=== PATIENT | female | born 1935 | race Caucasian/White ===

== ENCOUNTER 2017-08-24 05:00 | Emergency (ER) | payer MEDICARE, OTHER ==
[~2017-08-24] VITALS: Ht 157.5 cm; Wt 52.2 kg
--- OUTSIDE RECORDS SUMMARY | ~2017-08-24 | XMS | Clinical Summary ---
Demographics + + + | Address | [address] | | | [place] [address] | + + + | Home Phone | | + + + | Preferred Language | Unknown | + + + | Marital Status | | + + + | Baptism Affiliation | [id number] | + + + | Race | Unknown | + + + | Ethnic Group | Unknown | + + + Author + + + | Author | [facility] | | | and [place] | + + + | Organization | [facility] | | | and [place] | + + + | Address | Unknown | + + + | Phone | Unavailable | + + + Support + + + + + | Name | Relationship | Address | Phone | + + + + + | Fransisco Banks | ECON | [address] | | | | | [place], [place] | | | | | [address] | | + + + + + | Fermin Banks | ECON | [address] | | | | | [place] | | | | | [address] | | + + + + + | Faheem Banks | ECON | [address] | | | | | [place] [address] | | + + + + + Care Team Providers + +------+ + | Care Unit Aide Name | Role | Phone | + +------+ + | John Cline | PP | | | MD | | | + +------+ + Allergies + + + + + + | Active Allergy | Reactions | Severity | Noted | Comments | | | | | Date | | + + + + + + | Ezetimibe-Simvastati | Rash | Low | 06/16/19 | | | n | | | 15 | | + + + + + + Current Medications + + +--------+---------+------+------+-------+ | Prescription | Sig. | Disp. | Refills | Star | End | Statu | | | | | | t | Date | s | | | | | | Date | | | + + +--------+---------+------+------+-------+ | fenofibrate | Take 160 mg by mouth | | | | | Activ | | (LOFIBRA, TRIGLIDE) | Daily. | | | | | e | | 160 mg tablet | | | | | | | + + +--------+---------+------+------+-------+ | cetirizine | Take 10 mg by mouth | | | | | Activ | | (ZYRTEC) 10 mg | Daily. | | | | | e | | tablet | | | | | | | + + +--------+---------+------+------+-------+ | ascorbic acid | Take 500 mg by mouth | | | | | Activ | | (VITAMIN C) 500 mg | Daily. | | | | | e | | tablet | | | | | | | + + +--------+---------+------+------+-------+ | | Take 1 tablet by | | | | | Activ | | Glucosamine-Chondroi | mouth Daily. | | | | | e | | t-Vit C-Mn | | | | | | | | (GLUCOSAMINE 1500 | | | | | | | | COMPLEX PO) | | | | | | | + + +--------+---------+------+------+-------+ | cholecalciferol | Take 1,000 Units by | | | | | Activ | | (VITAMIN D-3) 1,000 | mouth Daily. | | | | | e | | units capsule | | | | | | | + + +--------+---------+------+------+-------+ | Ferrous Fumarate | Take 18 mg by mouth | | | | | Activ | | (IRON) 18 MG TBCR | Daily. | | | | | e | + + +--------+---------+------+------+-------+ | loratadine | Take 10 mg by mouth | | | | | Activ | | (CLARITIN) 10 mg | Daily. | | | | | e | | tablet | | | | | | | + + +--------+---------+------+------+-------+ | | Take 1 tablet by | 20 | 1 | 04/2 | | Activ | | HYDROcodone-acetamin | mouth every 4 hours | tablet | | 9/20 | | e | | ophen (NORCO) 5-325 | as needed for Pain. | | | 15 | | | | mg per tablet | | | | | | | + + +--------+---------+------+------+-------+ | amLODIPine | Take 1 tablet by | 30 | 1 | 04/2 | | Activ | | (NORVASC) 5 mg | mouth Daily. | tablet | | 9/20 | | e | | tablet | | | | 15 | | | + + +--------+---------+------+------+-------+ | aspirin 81 mg | Take 1 tablet by | 30 | 1 | 04/2 | | Activ | | chewable tablet | mouth Daily. | tablet | | 9/20 | | e | | | | | | 15 | | | + + +--------+---------+------+------+-------+ | metoprolol | Take 0.5 tablets by | 30 | 1 | 04/2 | | Activ | | succinate | mouth Daily. | tablet | | 9/20 | | e | | (TOPROL-XL) 25 mg 24 | | | | 15 | | | | hr tablet | | | | | | | + + +--------+---------+------+------+-------+ Active Problems + + + | Problem | Noted Date | + + + | Prediabetes | 08/15/2014 | + + + | Coronary artery disease | 07/10/2014 | + + + + + | Overview: 07/10/2014: Cardiac catheterization demonstrating | | discrete 90% mid RCA disease with scattered luminal | | irregularities elsewhere. Well-preserved LV function. | + + + + + | Mitral regurgitation | 06/16/2014 | + + + | Paroxysmal atrial fibrillation (HCC) | 06/16/2014 | + + + Family History + + +------+ + | Medical History | Relation | Name | Comments | + + +------+ + | Emphysema | Father | | | + + +------+ + | Diabetes | Maternal | | | | | Grandmoth | | | | | er | | | + + +------+ + | Cancer | Sister | | Breast cancer | + + +------+ + + +------+ + + | Relation | Name | Status | Comments | + +------+ + + | Father | | | Empysema | | | | (Age | | | | | 64) | | + +------+ + + | Maternal Grandmother | | | | + +------+ + + | Mother | | | MVA | | | | (Age | | | | | 79) | | + +------+ + + | Sister | | | | + +------+ + + Social History + + + +--------+ + | Tobacco Use | Types | Packs/Day | Years | Date | | | | | Used | | + + + +--------+ + | Former Smoker | Cigarettes | 0.3 | 30 | Quit: 04/23/1985 | + + + +--------+ + + + +---------+ + | Alcohol Use | Drinks/We | oz/Week | Comments | | | ek | | | + + +---------+ + | Yes | 7 | 3.5 | | | | Standard | | | | | drinks or | | | | | | | | | | equivalen | | | | | t | | | + + +---------+ + + + + | Sex Assigned at | Date Recorded | | | | + + + | Not on file | | + + + Last Filed Vital Signs + + + + | Vital Sign | Reading | Time Taken | + + + + | Blood Pressure | 108/69 | 08/19/20141133 PDT | + + + + | Pulse | 78 | 08/19/20141133 PDT | + + + + | Temperature | 36.2 C (97.2 F) | 08/19/20141133 PDT | + + + + | Respiratory Rate | 18 | 08/19/20141133 PDT | + + + + | Oxygen Saturation | 95% | 08/19/20141133 PDT | + + + + | Inhaled Oxygen | - | - | | Concentration | | | + + + + | Weight | 57.1 kg (125 lb 14.1 | 08/17/2014249 PDT | | | oz) | | + + + + | Height | 157.5 cm (5' 2") | 08/14/2014458 PDT | + + + + | Body Mass Index | 23.02 | 08/17/2014249 PDT | + + + + Plan of Treatment + + + + + | Health Maintenance | Due Date | Last Done | Comments | + + + + + | Vaccine: | | | | | Dtap/Tdap/Td (1 - | 5 | | | | Tdap) | | | | + + + + + | Vaccine: | | | | | Pneumococcal 65+ | 1 | | | | Low/Medium Risk (1 | | | | | of 2 - PCV13) | | | | + + + + + | Vaccine: Influenza | | | | | (Season Ended) | 8 | | | + + + + + Implants + +------+-------+ +--------+--------+--------+ | Implanted | Type | Area | Manufacture | Device | Expira | Model | | | | | r | | tion | / | | | | | | Identi | Date | Serial | | | | | | fier | | / Lot | + +------+-------+ +--------+--------+--------+ | Valve Mtrl Epic Stnt 31mm - | | N/A: | [facility] VIDAL | | 10/08/ | [id number] | | [id number]: Qty: 1 on | | Heart | MEDICAL - | | 2016 | 1M-00 | | 08/14/2014 by Braden Markham | | | STJU | | | /[id number] | | G, MD | | | | | | 228 / | + +------+-------+ +--------+--------+--------+ Results Not on filefrom Last 3 Months Insurance + +--------+ +--------+ + + | Payer | Benefi | Subscriber | Type | Phone | Address | | | t Plan | ID | | | | | | / | | | | | | | Group | | | | | + +--------+ +--------+ + + | MEDICARE | MEDICA | xxxxxxxxxx | Medica | [phone] | | | RE | | re | [phone] | | | | PART A | | | | | | | AND B | | | | | + +--------+ +--------+ + + | MODA | MODA | xxxxxxxxx | Indemn | [phone] [address] [address] | | | HEALTH | | ity | [phone] | [place] [address] | | | MDCR | | | | | | | SUPPL | | | | | + +--------+ +--------+ + + + +--------+ +--------+ + + | Guarantor Name | Accoun | Relation to | Date | Phone | Billing Address | | | t Type | Patient | of | | | | | | | | | | + +--------+ +--------+ + + | GLADYS BANKS | Person | Self | [birth year] | Home: | [address] | | | al/Fam | | 1936 | [phone] [place] [address] | | | adilson | | | [phone] | | + +--------+ +--------+ + +
--- OUTSIDE RECORDS SUMMARY | ~2017-08-24 | XMS | Encounter Summary ---
Demographics + + + | Address | [address] | | | [place] [address] | + + + | Home Phone | | + + + | Preferred Language | Unknown | + + + | Marital Status | | + + + | Yazidism Affiliation | Unknown | + + + | Race | Unknown | + + + | Ethnic Group | Unknown | + + + Author + + + | Author | [facility] | + + + | Organization | [facility] | + + + | Address | Unknown | + + + | Phone | Unavailable | + + + Support + + +---------+ + | Name | Relationship | Address | Phone | + + +---------+ + | Fransisco Banks | ECON | Unknown | | + + +---------+ + Care Team Providers + +------+ + | Care Course Developer Name | Role | Phone | + +------+ + | John Cline MD | PCP | | + +------+ + Encounter Details +--------+ + + + + | Date | Type | Department | Care Team | Description | +--------+ + + + + | 06/26/ | Ancillary | [facility] | Julieth, Roxi, | Paroxysmal atrial | | 2018 | Procedure | ECHO | [address] | fibrillation (HCC); | | | | | Dr [address], | H/O mitral valve | | | | | [place] [address] | replacement | | | | | [phone] | | | | | | | | +--------+ + + + + Social History + + + +--------+ + | Tobacco Use | Types | Packs/Day | Years | Date | | | | | Used | | + + + +--------+ + | Former Smoker | Cigarettes | 0.4 | 30 | Quit: 04/23/1985 | + + + +--------+ + + +---+---+---+ | Smokeless Tobacco: | | | | | Never Used | | | | + +---+---+---+ + + +---------+ + | Alcohol Use | Drinks/We | oz/Week | Comments | | | ek | | | + + +---------+ + | Yes | 7 | 4.2 | red wine` | | | Standard | | | | | drinks or | | | | | | | | | | equivalen | | | | | t | | | + + +---------+ + + + + | Sex Assigned at | Date Recorded | | | | + + + | Not on file | | + + + as of this encounter Plan of Treatment +--------+ + + + + | Date | Type | Specialty | Care Team | Description | +--------+ + + + + | 09/25/ | Documentati | Cardiology | | | | 2018 | on Only | | | | +--------+ + + + + | 11/13/ | Documentati | Cardiology | | | | 2018 | on Only | | | | +--------+ + + + + | 12/19/ | Office | Cardiology | Roxi Fuentes, | | | 2017 | Visit | | MD Meche Ball | | | | | | Dr [address], | | | | | | [place] [address] | | | | | | [phone] | | | | | | | | +--------+ + + + + | 02/19/ | Documentati | Cardiology | | | | 2017 | on Only | | | | +--------+ + + + + | 05/28/ | Documentati | Cardiology | | | | 2018 | on Only | | | | +--------+ + + + + as of this encounter Procedures + +--------+ + + + | Procedure Name | Priori | Date/Time | Associated Diagnosis | Comments | | | ty | | | | + +--------+ + + + | ECHO OUTSIDE | Routin | 06/26/2017 | Paroxysmal atrial | Results for this | | INTERPRETATION | e | 12:29 PM | fibrillation (HCC) | procedure are in the | | STANDARD | | PST | H/O mitral valve | results section. | | | | | replacement | | + +--------+ + + + in this encounter Results ECHO outside interpretation standard (06/26/2017 12:29 PM) + + + | Specimen | Performing Laboratory | + + + | | [facility] [place] [id number] | + + + + + | Impressions | + + | 1. The left ventricle is normal in size, mild concentric hypertrophy and normal | | systolic function EF 55-60%. 2. The right ventricle is normal in size and function. 3. | | The aortic valve is moderately calcified with moderate stenosis mean gradient of 12 | | mmHg. 4. 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 5. Moderate tricuspid regurgitation and mild pulmonary hypertension RVSP | | 43 mmHg. 6. There is no pericardial effusion. | + + + + | Narrative | + + | Patient Name: Gladys Banks Date of : 1935 | | Performing Physician: Roxi Fuentes MD | | INDICATIONS | | A-Fib CONCLUSIONS 1. The left ventricle is normal in | | size, mild concentric hypertrophy and normal systolic function EF 55-60%. 2. The right | | ventricle is normal in size and function. 3. The aortic valve is moderately calcified | | with moderate stenosis mean gradient of 12 mmHg. 4. Bioprosthetic MVR [address] Lei | | epic porcine valve with no stenosis or regurgitation. 5. Moderate tricuspid | | regurgitation and mild pulmonary hypertension RVSP 43 mmHg. 6. There is no pericardial | | effusion. FINDINGS -------- ECG rhythm: Sinus rhythm. Study: A 2-dimensional | | transthoracic echocardiogram with m-mode, spectral and color flow Doppler was perfomed. | | Study: This was a technically adequate study. Left Ventricle: Overall left | | ventricular systolic function is normal with, an EF between 55 - 60 %. Left Ventricle: | | The left ventricle cavity size is normal. Left Ventricle: There is mild concentric | | left ventricular hypertrophy. Left Ventricle: No regional wall motion abnormalities. | | Right Ventricle: The right ventricle is normal in size and function. Right Ventricle: | | Pacer/ICD wire seen. Left Atrium: The left atrium is markedly enlarged. Right Atrium: | | The right atrium is normal in size. Right Atrium: Pacemaker wire seen in the right | | atrial cavity. Aortic Valve: The aortic valve appears to be trileaflet. Aortic Valve: | | The aortic valve is moderately calcified. Aortic Valve: There is mild aortic | | regurgitation. Aortic Valve: Moderate aortic stenosis with peak/mean pressure gradient | | of 21.39mmHg / 11.77mmHg, the aortic valve area by continuity equation is 1.4cm . | | Mitral Valve: No mitral regurgitation. Mitral Valve: History of MVR [address] Lei | | epic porcine valve. Tricuspid Valve: The tricuspid valve appears structurally normal. | | Tricuspid Valve: Moderate tricuspid regurgitation present. Tricuspid Valve: There is | | mild pulmonary hypertension. Tricuspid Valve: The right ventricular systolic pressure | | (pulmonary artery systolic pressure), as measured by Doppler, is 43.29mmHg. Pulmonic | | Valve: The pulmonic valve is normal. Pulmonic Valve: Mild to moderate pulmonic | | regurgitation. Pericardium: There is no pericardial effusion. Pericardium: No pleural | | effusion seen. IVC/Hepatic Veins: The IVC is small (<1.5cm) and collapses with sniff, | | consistent with central venous pressures of 0-5mmHg. 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 MEASUREMENTS Ao asc: 3.75 cm | | Ao Diam: 3.51 cm Ao sinus: 3.[address] junct: 3.41 cm IVC: 1.15 cm | | LA Diam: 3.73 cm LA Major: 4.72 cm EDV(Teich): 79.17 ml IVSd: 1.09 | | cm LVIDd: 4.21 cm LVPWd: 1.18 cm LVOT Area: 3.30 cm2 LVOT Diam: 2.05 | | cm %FS: 27.54 % EF(Teich): 53.86 % ESV(Teich): 36.52 ml LVIDs: 3.05 | | cm SV(Teich): 42.64 ml RA Major: 4.49 cm RV Major: 6.56 cm RVIDd: | | 2.91 cm LVEF MOD A2C: 56.86 % SV MOD A2C: 32.26 ml LVEF MOD A4C: 55.47 % | | SV MOD A4C: 36.40 ml EF Biplane: 56.51 % LVEDV MOD BP: 63.07 ml LVESV | | MOD BP: 27.43 ml LVEDV MOD A2C: 56.74 ml LVLd A2C: 6.33 cm LVEDV MOD | | A4C: 65.61 ml LVLd A4C: 6.84 cm LVESV MOD A2C: 24.47 ml LVLs A2C: | | 5.67 cm LVESV MOD A4C: 29.21 ml LVLs A4C: 6.01 cm LAESV(A-L): 117.42 ml | | LAESV Index (A-L): 76.74 ml/m2 LAAs A2C: 26.51 cm2 LAESV A-L A2C: 107.42 | | ml LALs A2C: 5.55 cm LAAs A4C: 28.86 cm2 LAESV A-L A4C: 127.84 ml LALs | | A4C: 5.53 cm RAAs: 14.85 cm2 RAESV A-L: 40.08 ml RAESV MOD: 36.09 ml | | RALs: 4.67 cm TAPSE: 2.26 cm AR Dec Troup: 2.13 m/s2 AR Dec Time: | | 2121.31 ms AR maxP.28 mmHg AR PHT: 615.18 ms AR Vmax: 4.53 m/s AV | | maxP.39 mmHg AV meanP.76 mmHg AV Vmax: 2.31 m/s AV Vmean: | | 1.60 m/s AV VTI: 54.59 cm ZIGGY Vmax: 1.47 cm2 ZIGGY (VTI): 1.35 cm2 AVAI | | Vmax: 0.00 cm2/m2 AVAI (VTI): 0.00 cm2/m2 LVOT maxP.23 mmHg LVOT | | meanP.18 mmHg LVSI Dopp: 48.23 ml/m2 LVSV Dopp: 73.80 ml LVOT | | Vmax: 1.02 m/s LVOT Vmean: 0.68 m/s LVOT VTI: 22.34 cm MV A Enrique: 0.50 | | m/s MV DecT: 330.33 ms MV E Enrique: 1.38 m/s MV E/A Ratio: 2.72 MV | | PHT: 95.79 ms MVA By PHT: 2.29 cm2 MV maxP.38 mmHg MV meanPG: | | 2.48 mmHg MV Vmax: 1.44 m/s MV Vmean: 0.69 m/s MV VTI: 39.44 cm MVA | | (VTI): 1.87 cm2 Septal e': 0.04 m/s Septal E/e': 30.60 Lateral e': | | 0.04 m/s Lateral E/e': 31.32 RAP: 5 mmHg RVSP: 43.29 mmHg TR maxPG: | | 38.29 mmHg TR Vmax: 3.09 m/s Senior Core Java Developer: Authenticated by: Julieth | | Roxi AMIN Report Date/Time: 07-03-2017 18:5:35 | + + + + | Procedure Note | + + | Jose L Mijares In - 07/03/2017 6:11 PM PDT Patient Name: Shailesh Banks of | | : 6Accession: [id number] Physician: Roxi Fuentes MD | | INDICATIONS A-F | | ibCONCLUSIONS 1. The left ventricle is normal in size, mild concentric | | hypertrophy and normal systolic function EF 55-60%.2. The right ventricle is normal in | | size and function.3. The aortic valve is moderately calcified with moderate stenosis | | mean gradient of 12 mmHg.4. 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 Moderate tricuspid regurgitation and mild pulmonary | | hypertension RVSP 43 mmHg.6. There is no pericardial effusion.FINDINGS--------ECG | | rhythm: Sinus rhythm.Study: A 2-dimensional transthoracic echocardiogram with m-mode, | | spectral and color flow Doppler was perfomed. Study: This was a technically adequate | | study.Left Ventricle: Overall left ventricular systolic function is normal with, an EF | | between 55 - 60 %. Left Ventricle: The left ventricle cavity size is normal. Left | | Ventricle: There is mild concentric left ventricular hypertrophy. Left Ventricle: No | | regional wall motion abnormalities.Right Ventricle: The right ventricle is normal in | | size and function. Right Ventricle: Pacer/ICD wire seen.Left Atrium: The left atrium is | | markedly enlarged.Right Atrium: The right atrium is normal in size. Right Atrium: | | Pacemaker wire seen in the right atrial cavity.Aortic Valve: The aortic valve appears to | | be trileaflet. Aortic Valve: The aortic valve is moderately calcified. Aortic Valve: | | There is mild aortic regurgitation. Aortic Valve: Moderate aortic stenosis with | | peak/mean pressure gradient of 21.39mmHg / 11.77mmHg, the aortic valve area by | | continuity equation is 1.4cm .Mitral Valve: No mitral regurgitation. Mitral Valve: | | History of MVR [address] Lei epic porcine valve.Tricuspid Valve: The tricuspid valve | | appears structurally normal. Tricuspid Valve: Moderate tricuspid regurgitation present. | | Tricuspid Valve: There is mild pulmonary hypertension. Tricuspid Valve: The right | | ventricular systolic pressure (pulmonary artery systolic pressure), as measured by | | Doppler, is 43.29mmHg.Pulmonic Valve: The pulmonic valve is normal. Pulmonic Valve: Mild | | to moderate pulmonic regurgitation.Pericardium: There is no pericardial effusion. 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.MEASUREMENTS Ao | | asc: 3.75 cmAo Diam: 3.51 cmAo sinus: 3.[address] junct: 3.41 cmIVC: 1.15 | | cmLA Diam: 3.73 cmLA Major: 4.72 cmEDV(Teich): 79.17 mlIVSd: 1.09 cmLVIDd: | | 4.21 cmLVPWd: 1.18 cmLVOT Area: 3.30 [id number] Diam: 2.05 cm%FS: 27.54 %EF(Teich): | | 53.86 %ESV(Teich): 36.52 mlLVIDs: 3.05 cmSV(Teich): 42.64 mlRA Major: 4.49 | | cmRV Major: 6.56 cmRVIDd: 2.91 cmLVEF MOD A2C: 56.86 %SV MOD A2C: 32.26 mlLVEF | | MOD A4C: 55.47 %SV MOD A4C: 36.40 mlEF Biplane: 56.51 %LVEDV MOD BP: 63.07 | | mlLVESV MOD BP: 27.43 mlLVEDV MOD A2C: 56.74 mlLVLd A2C: 6.33 cmLVEDV MOD A4C: | | 65.61 mlLVLd A4C: 6.84 cmLVESV MOD A2C: 24.47 mlLVLs A2C: 5.67 cmLVESV MOD A4C: | | 29.21 mlLVLs A4C: 6.01 cmLAESV(A-L): 117.42 mlLAESV Index (A-L): 76.74 ml/m2LAAs | | A2C: 26.51 [id number] A-L A2C: 107.42 mlLALs A2C: 5.55 cmLAAs A4C: 28.86 [id number] | | A-L A4C: 127.84 mlLALs A4C: 5.53 cmRAAs: 14.85 [id number] A-L: 40.08 mlRAESV MOD: | | 36.09 mlRALs: 4.67 cmTAPSE: 2.26 cmAR Dec Troup: 2.13 m/s2AR Dec Time: 2120. | | msAR maxP.28 mmHgAR PHT: 615.18 msAR Vmax: 4.53 m/Sherry maxP.39 mmHgAV | | meanP.76 mmHgAV Vmax: 2.31 m/Sherry Vmean: 1.60 m/Sherry VTI: 54.59 cmAVA Vmax: | | 1.47 cm2AVA (VTI): 1.35 [id number] Vmax: 0.00 cm2/m2AVAI (VTI): 0.00 cm2/m2LVOT | | maxP.23 mmHgLVOT meanP.18 mmHgLVSI Dopp: 48.23 ml/m2LVSV Dopp: 73.80 | | mlLVOT Vmax: 1.02 m/sLVOT Vmean: 0.68 m/sLVOT VTI: 22.34 cmMV A Enrique: 0.50 m/sMV | | DecT: 330.33 msMV E Enrique: 1.38 m/sMV E/A Ratio: 2.72 MV PHT: 95.79 msMVA By PHT: | | 2.29 cm2MV maxP.38 mmHgMV meanP.48 mmHgMV Vmax: 1.44 m/sMV Vmean: 0.69 | | m/sMV VTI: 39.44 cmMVA (VTI): 1.87 [id number] e': 0.04 m/sSeptal E/e': 30.60 | | Lateral e': 0.04 m/sLateral E/e': 31.32 RAP: 5 mmHgRVSP: 43.29 mmHgTR maxPG: | | 38.29 mmHgTR Vmax: 3.09 m/sSonographer: Authenticated by: [facility]entes [facility] | | Date/Time: 07-03-2017 18:5:35IMPRESSION:1. The left ventricle is normal in size, mild | | concentric hypertrophy and normal systolic function EF 55-60%.2. The right ventricle is | | normal in size and function.3. The aortic valve is moderately calcified with moderate | | stenosis mean gradient of 12 mmHg.4. Bioprosthetic MVR [address] Lei epic porcine valve | | with no stenosis or regurgitation.5. Moderate tricuspid regurgitation and mild pulmonary | | hypertension RVSP 43 mmHg.6. There is no pericardial effusion. | |LA Diam: 3.73 cm | |LA Major: 4.72 cm | |EDV(Teich): 79.17 ml | |IVSd: 1.09 cm | |LVIDd: 4.21 cm | |LVPWd: 1.18 cm | |LVOT Area: 3.30 cm2 | |LVOT Diam: 2.05 cm | |%FS: 27.54 % | |EF(Teich): 53.86 % | |ESV(Teich): 36.52 ml | |LVIDs: 3.05 cm | |SV(Teich): 42.64 ml | |RA Major: 4.49 cm | |RV Major: 6.56 cm | |RVIDd: 2.91 cm | |LVEF MOD A2C: 56.86 % | |SV MOD A2C: 32.26 ml | |LVEF MOD A4C: 55.47 % | |SV MOD A4C: 36.40 ml | |EF Biplane: 56.51 % | |LVEDV MOD BP: 63.07 ml | |LVESV MOD BP: 27.43 ml | |LVEDV MOD A2C: 56.74 ml | |LVLd A2C: 6.33 cm | |LVEDV MOD A4C: 65.61 ml | |LVLd A4C: 6.84 cm | |LVESV MOD A2C: 24.47 ml | |LVLs A2C: 5.67 cm | |LVESV MOD A4C: 29.21 ml | |LVLs A4C: 6.01 cm | |LAESV(A-L): 117.42 ml | |LAESV Index (A-L): 76.74 ml/m2 | |LAAs A2C: 26.51 cm2 | |LAESV A-L A2C: 107.42 ml | |LALs A2C: 5.55 cm | |LAAs A4C: 28.86 cm2 | |LAESV A-L A4C: 127.84 ml | |LALs A4C: 5.53 cm | |RAAs: 14.85 cm2 | |RAESV A-L: 40.08 ml | |RAESV MOD: 36.09 ml | |RALs: 4.67 cm | |TAPSE: 2.26 cm | |AR Dec Troup: 2.13 m/s2 | |AR Dec Time: 2121.31 ms | |AR maxP.28 mmHg | |AR PHT: 615.18 ms | |AR Vmax: 4.53 m/s | |AV maxP.39 mmHg | |AV meanP.76 mmHg | |AV Vmax: 2.31 m/s | |AV Vmean: 1.60 m/s | |AV VTI: 54.59 cm | |ZIGGY Vmax: 1.47 cm2 | |ZIGGY (VTI): 1.35 cm2 | |AVAI Vmax: 0.00 cm2/m2 | |AVAI (VTI): 0.00 cm2/m2 | |LVOT maxP.23 mmHg | |LVOT meanP.18 mmHg | |LVSI Dopp: 48.23 ml/m2 | |LVSV Dopp: 73.80 ml | |LVOT Vmax: 1.02 m/s | |LVOT Vmean: 0.68 m/s | |LVOT VTI: 22.34 cm | |MV A Enrique: 0.50 m/s | |MV DecT: 330.33 ms | |MV E Enrique: 1.38 m/s | |MV E/A Ratio: 2.72 | |MV PHT: 95.79 ms | |MVA By PHT: 2.29 cm2 | |MV maxP.38 mmHg | |MV meanP.48 mmHg | |MV Vmax: 1.44 m/s | |MV Vmean: 0.69 m/s | |MV VTI: 39.44 cm | |MVA (VTI): 1.87 cm2 | |Septal e': 0.04 m/s | |Septal E/e': 30.60 | |Lateral e': 0.04 m/s | |Lateral E/e': 31.32 | |RAP: 5 mmHg | |RVSP: 43.29 mmHg | |TR maxP.29 mmHg | |TR Vmax: 3.09 m/s | | | |Senior Core [employer] Developer: | |Authenticated by: Roxi Fuentes MD | |Report Date/Time: 07-03-2017 18:5:35 | | | |IMPRESSION: | |1. The left ventricle is normal in size, mild concentric hypertrophy and normal systolic fu nction EF 55-60%. | |2. The right ventricle is normal in size and function. | |3. The aortic valve is moderately calcified with moderate stenosis mean gradient of 12 mmHg . | |4. Bioprosthetic MVR [address] [place] epic porcine valve with no stenosis or regurgitation. | |5. Moderate tricuspid regurgitation and mild pulmonary hypertension RVSP 43 mmHg. | |6. There is no pericardial effusion. | + + in this encounter Visit Diagnoses + + | Diagnosis | + + | Paroxysmal atrial fibrillation (HCC) | + + | Atrial fibrillation | + + | H/O mitral valve replacement | + + | Heart valve replaced by other means | + +"
--- OUTSIDE RECORDS SUMMARY | ~2017-08-24 | XMS | Clinical Summary ---
Demographics + + + | Address | [address] [facility] [address] | | | [place] [address] | + + + | Home Phone | | + + + | Preferred Language | Unknown | + + + | Marital Status | | + + + | Christianity Affiliation | Unknown | + + + | Race | Unknown | + + + | Ethnic Group | Unknown | + + + Author + + + | Author | [facility] | + + + | Organization | [facility] | + + + | Address | Unknown | + + + | Phone | Unavailable | + + + Support + + +---------+ + | Name | Relationship | Address | Phone | + + +---------+ + | Fransisco Banks | ECON | Unknown | | + + +---------+ + Care Team Providers + +------+ + | Care Service Center Supervisor Name | Role | Phone | + +------+ + | John Cline MD | PP | | + +------+ + Allergies + + + + + + | Active Allergy | Reactions | Severity | Noted | Comments | | | | | Date | | + + + + + + | Ezetimibe | Hives, Rash | High | 07/05/19 | | | | | | 16 | | + + + + + + | Simvastatin | Other (See Comments) | Medium | 07/05/19 | Muscular aches and | | | | | 16 | pains | + + + + + + Current Medications + + +--------+---------+------+------+-------+ | Prescription | Sig. | Disp. | Refills | Star | End | Statu | | | | | | t | Date | s | | | | | | Date | | | + + +--------+---------+------+------+-------+ | ferrous gluconate | Take 325 mg by mouth | | | | | Activ | | (FERGON) 240 (27 FE) | daily. | | | | | e | | MG tablet | | | | | | | + + +--------+---------+------+------+-------+ | metoprolol | Take 25 mg by mouth | | | | | Activ | | (TOPROL-XL) 25 MG 24 | 2 (two) times daily. | | | | | e | | hr tablet | | | | | | | + + +--------+---------+------+------+-------+ | cetirizine | Take 10 mg by mouth | | | | | Activ | | (ZYRTEC) 10 MG | daily. | | | | | e | | tablet | | | | | | | + + +--------+---------+------+------+-------+ | amiodarone | Take 200 mg by mouth | | | | | Activ | | (PACERONE) 200 MG | daily. Sunday thr | | | | | e | | tablet | Sunday only | | | | | | + + +--------+---------+------+------+-------+ | fenofibrate | Take 160 mg by mouth | | | | | Activ | | (TRIGLIDE) 160 MG | daily. | | | | | e | | tablet | | | | | | | + + +--------+---------+------+------+-------+ | ascorbic acid | Take 500 mg by mouth | | | | | Activ | | (VITAMIN C) 500 MG | daily. | | | | | e | | tablet | | | | | | | + + +--------+---------+------+------+-------+ | | Take 1 capsule by | | | | | Activ | | glucosamine-chondroi | mouth daily. W/ | | | | | e | | tin 500-400 MG CAPS | Vitamin D | | | | | | + + +--------+---------+------+------+-------+ | aspirin 81 MG EC | Take 1 tablet by | | | 03/1 | | Activ | | tablet | mouth daily with | | | 4/20 | | e | | | breakfast. | | | 16 | | | + + +--------+---------+------+------+-------+ | apixaban (ELIQUIS) | Take 1 tablet by | 180 | 1 | 05/2 | | Activ | | 2.5 MG tablet | mouth 2 (two) times | tablet | | 4/20 | | e | | | daily. | | | 16 | | | + + +--------+---------+------+------+-------+ | Cholecalciferol | Take 2,000 Units by | | | | | Activ | | 2000 UNITS CAPS | mouth daily. | | | | | e | + + +--------+---------+------+------+-------+ | cyanocobalamin | Take 1,000 mcg by | | | | | Activ | | (VITAMIN B-12) 1000 | mouth daily. | | | | | e | | MCG tablet | | | | | | | + + +--------+---------+------+------+-------+ | atorvastatin | Take 40 mg by mouth | | | | | Activ | | (LIPITOR) 40 MG | nightly. | | | | | e | | tablet | | | | | | | + + +--------+---------+------+------+-------+ | donepezil | Take 5 mg by mouth | | | | | Activ | | (ARICEPT) 5 MG | daily. 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 | | 80yo WF, with fairly complex cardiac history, severe mitral | | regurgitation, paroxysmal atrial fibrillation, and coronary | | disease. Undergoing bypass surgery with mitral valve | | replacement, Maze procedure with Atricure clip. She has done | | well since her last visit, a few months ago. Her son is with her | | today. She does not recall any recent palpitations or | | lightheadedness. Denies any new visual disturbances, dysarthria, | | dysphasia, lateralizing signs or symptoms. No significant | | bleeding or bruising. She is unaware of any significant chest | | discomfort or shortness of breath, only modestly active. With | | regards to her amiodarone, routine surveillance includes | | monitoring thyroid function, liver enzymes, chest x-ray, and | | PFT's with diffusion capacity may be reasonable if she can | | cooperate with PFT maneuvers. Hx CABG ([facility], [place]): 08/14/2014, | | CABG*1/MVR (SVG to RCA/#31 SJ Epic porcine valve, with Left | | Atrial cryo-MAZE and Atricure clip (40mm).Hx PCI/stent: noHx | | Pacemaker/ICD: 09/29/2014, Medtronic ADDR01, SN: [id number].Last | | Cath, 07/10/2014 ([facility], [place]): left main OK, 20-25% scattered | | LAD, 30-35% scattered LCx, 90% prox-RCA. Moderate-severe MR, | | failed leaflet. LVEF 65%.Last Echo, 09/23/2014 ([facility]): | | bioprosthetic MVR, stable, mean gradient 2mmHg, trace MR, Aortic | | valve sclerotic, 2m/sec, mild AI, trace TR, moderate PI, mild | | LVH, LVEF 64%, severe LAE, mild RHEA. Last Stress Test: naECG, | | 07/02/2015: A-paced, intrinsic QRS PRWP. | + + + + + | Paroxysmal atrial fibrillation (HCC) | 07/05/2015 | + + + + + | Last Assessment & Plan: Torin lira, Hx cryo-MAZE and Atricure | | clip (during CABG/MVR), 08/14/2014. On amiodarone and Eliquis. | | Remains in sinus rhythm. Unaware of any new visual disturbances, | | dysarthria, dysphasia, lateralizing signs or symptoms. No | | significant bleeding or bruising. She does admit she has having | | some memory difficulties. | + + + + + | Cardiac pacemaker in situ | 07/05/2015 | + + + + + | Last Assessment & Plan: Tachy-bruno Syndrome, P A fib, | | medical therapy/pacemaker therapy. Followed by | | [facility].Pacemaker implanted 09/29/2014 ([facility]), Medtronic | | ADDR01, SN: [id number].Last interrogation, 03/01/2015: battery est | | 12 years, device stable, one episode of P A fib, 30min, V-rate | | 160bpm. | + + + + + | Hyperlipidemia | 07/05/2015 | + + + + + | Last Assessment & Plan: Hyperlipidemia, continue current med | | at current dose (fenofibrate), managed by PCP. | + + Encounters +--------+ + + + + | Date | Type | Specialty | Care Team | Description | +--------+ + + + + | 06/26/ | Ancillary | | Roxi Fuentes, | Paroxysmal atrial | | 2017 | Procedure | | MD | fibrillation ([facility]); | | | | | | H/O mitral valve | | | | | | replacement | +--------+ + + + + | 06/20/ | Office | | Roxi Fuentes, | Coronary artery | | 2017 | Visit | | MD | disease involving | | | | | | coronary bypass | | | | | | graft of tejon | | | | | | heart with angina | | | | | | pectoris ([facility]) | | | | | | (Primary Dx); | | | | | | Paroxysmal atrial | | | | | | fibrillation ([facility]); | | | | | | Mixed | | | | | | hyperlipidemia; H/O | | | | | | mitral valve | | | | | | replacement | +--------+ + + + + from Last 3 Months Family History + + +------+ + | Medical History | Relation | Name | Comments | + + +------+ + | Heart disease | Father | | | + + +------+ + | Diabetes type II | Mother | | | + + +------+ + | Heart disease | Mother | | | + + +------+ + + +------+ + + | Relation | Name | Status | Comments | + +------+ + + | Father | | | COPD, CHF (heavy smoker) | + +------+ + + | Mother | | | DMII,heart disease | + +------+ + + Social History [...] + + + | Blood Pressure | 112/64 | 06/20/2017 10:47 AM PST | + + + + | Pulse | 66 | 06/20/2017 10:47 AM PST | + + + + | Temperature | - | - | + + + + | Respiratory Rate | 17 | 12/06/2015 12:37 PM PDT | + + + + | Oxygen Saturation | 95% | 06/20/2017 10:47 AM PST | + + + + | Inhaled Oxygen | - | - | | Concentration | | | + + + + | Weight | 54.8 kg (120 lb 14.4 | 06/20/2017 10:47 AM PST | | | oz) | | + + + + | Height | 160 cm (5' 3") | 06/20/2017 10:47 AM PST | + + + + | Body Mass Index | 21.42 | 06/20/2017 10:47 AM PST | + + + + Plan of Treatment +--------+ + + + + | Date | Type | Specialty | Care Team | Description | +--------+ + + + + | 09/25/ | Documentati | | | | | 2017 | on Only | | | | +--------+ + + + + | 11/13/ | Documentati | | | | | 2017 | on Only | | | | +--------+ + + + + | 12/19/ | Office | | Roxi Fuentes, | | | 2017 | Visit | | MD Meche Ball | | | | | | Dr [place], | | | | | | [place] [address] | | | | | | [phone] | | | | | | | | +--------+ + + + + | 02/19/ | Documentati | | | | | 2017 | on Only | | | | +--------+ + + + + | 05/28/ | Documentati | | | | | 2018 | on Only | | | | +--------+ + + + + + + + + + | Health Maintenance | Due Date | Last Done | Comments | + + + + + | Vaccine: | | | | | Dtap/Tdap/Td (1 - | 5 | | | | Tdap) | | | | + + + + + | DEXA SCAN SCREENING | | | | | | 1 | | | + + + + [...] | | + + + + + Procedures + +--------+ + + + | [...] | | + +--------+ + + + from Last 3 Months Results ECHO outside interpretation standard (06/26/2017 12:29 PM) + + + | Specimen | Performing Laboratory | + + + | | [facility] [place] [address] | + + + + + | [...] Narrative | + + | Patient Name: Hardik Banks Date of : 1935 | | [...] 4.67 cm TAPSE: 2.26 cm AR Dec [place]: 2.13 m/s2 AR Dec Time: | | [...] | 38.29 mmHg TR Vmax: 3.09 m/s Pump Operator: Authenticated by: Gina | | Roxi AMIN Report Date/Time: 07-03-2017 18:5:35 | + + + + | Procedure Note | + + | Jose L Mijares In - 07/03/2017 6:11 PM PDT Patient Name: Shailesh aBnks of | | : 1935ccession: [id number] Physician: Roxi Fuentes MD | | INDICATIONS [...] | 4.21 cmLVPWd: 1.18 cmLVOT Area: 3.30 fr7OHQM Diam: 2.05 cm%FS: 27.54 %EF(Teich): | | [...] (A-L): 76.74 ml/m2LAAs | | A2C: 26.51 [id number] A-L A2C: 107.42 mlLALs A2C: 5.55 cmLAAs A4C: 28.86 ox9UEOZD | | A-L A4C: 127.84 mlLALs A4C: 5.53 cmRAAs: 14.85 wu1YXDRB A-L: 40.08 mlRAESV MOD: | | 36.09 mlRALs: 4.67 cmTAPSE: 2.26 cmAR Dec [place]: 2.13 m/s2AR Dec Time: 2120. | | msAR maxP.28 mmHgAR PHT: 615.18 msAR Vmax: 4.53 m/Sherry maxP.39 mmHgAV | | meanP.76 mmHgAV Vmax: 2.31 m/Sherry Vmean: 1.60 m/Sherry VTI: 54.59 cmAVA Vmax: | | 1.47 cm2AVA (VTI): 1.35 vw4AKIL Vmax: 0.00 cm2/m2AVAI (VTI): 0.00 cm2/m2LVOT | [...] | m/sMV VTI: 39.44 cmMVA (VTI): 1.87 xx7Trdgvh e': 0.04 m/sSeptal E/e': 30.60 | | Lateral e': 0.04 m/sLateral E/e': 31.32 RAP: 5 mmHgRVSP: 43.29 mmHgTR maxPG: | | 38.29 mmHgTR Vmax: 3.09 m/sSonographer: Authenticated by: Roxi Fuentes | | Date/Time: 07-03-2017 18:5:35IMPRESSION:1. The left [...] | |TAPSE: 2.26 cm | |AR Dec [place]: 2.13 m/s2 | |AR Dec Time: 2121.31 [...] |TR Vmax: 3.09 m/s | | | |Pump Operator: | |Authenticated by: Roxi Fuentes MD | [...] is no pericardial effusion. | + + from Last 3 Months Insurance + +--------+ +------+-------+ + | Payer | Benefi | Subscriber | Type | Phone | Address | | | t Plan | ID | | | | | | / | | | | | | | Group | | | | | + +--------+ +------+-------+ + | MEDICARE | MEDICA | xxxxxxxxxx | | | [address] | | | RE | | | | [place] [address] | | | IP-OP | | | | | + +--------+ +------+-------+ + | [employer]AN | ODS - | xxxxxxxxx | | | | | | GENERI | | | | | | | C | | | | | + +--------+ +------+-------+ + | [employer] | ODS | xxxxxxxxx | | | | | | HEALTH | | | | | | | PLAN | | | | | + +--------+ +------+-------+ + + +--------+ +--------+ + + | Guarantor Name | Accoun | Relation to | Date | Phone | Billing Address | | | t Type | Patient | of | | | | | | | | | | + +--------+ +--------+ + + | HARDIK BANKS | Person | Self | [birth year] | Home: | [address] | | | al/Fam | | 1936 | [phone] | [place] | | | [place] | | | [phone] | + +--------+ +--------+ + +
--- OUTSIDE RECORDS SUMMARY | ~2017-08-24 | XMS | Encounter Summary ---
Demographics + + + | Address | [address] | | | [place] [address] | + + + | Home Phone | | + + + | Preferred Language | Unknown | + + + | Marital Status | | + + + | Moravian Affiliation | Unknown | + + + | Race | Unknown | + + + | Ethnic Group | Unknown | + + + Author + + + | Author | [facility] | + + + | Organization | [facility] | + + + | Address | Unknown | + + + | Phone | Unavailable | + + + Support + + +---------+ + | Name | Relationship | Address | Phone | + + +---------+ + | Fransisco Banks | ECON | Unknown | | + + +---------+ + Care Team Providers + +------+ + | Care Money Laundering Investigator Name | Role | Phone | + [...] valve | | | | | [place] [address] | replacement | | | | | [phone] | | | | | | | [...] [place], | | | | | | [place] [address] | | | | | | [phone] | | | | | | | [...] + + + | | [place] [address] | + + + + + | [...] 4.67 cm TAPSE: 2.26 cm AR Dec [place]: 2.13 m/s2 AR Dec Time: | | [...] | 38.29 mmHg TR Vmax: 3.09 m/s Sales Agent Business Services: Authenticated by: Julieth | | Roxi AMIN Report Date/Time: 07-03-2017 18:5:35 | + + + + | Procedure Note | + + | Jose L Mijares In - 07/03/2017 6:11 PM PDT Patient Name: Shailesh Banks of | | : 6Accession: [id number] Physician: Roxi Fuentes MD | | INDICATIONS [...] | 4.21 cmLVPWd: 1.18 cmLVOT Area: 3.30 jl5VXNG Diam: 2.05 cm%FS: 27.54 %EF(Teich): | | [...] (A-L): 76.74 ml/m2LAAs | | A2C: 26.51 op7VVEQF A-L A2C: 107.42 mlLALs A2C: 5.55 cmLAAs A4C: 28.86 at8ZEBPQ | | A-L A4C: 127.84 mlLALs A4C: 5.53 cmRAAs: 14.85 bu5GKPTZ A-L: 40.08 mlRAESV MOD: | | 36.09 mlRALs: 4.67 cmTAPSE: 2.26 cmAR Dec [place]: 2.13 m/s2AR Dec Time: 2120. | | msAR maxP.28 mmHgAR PHT: 615.18 msAR Vmax: 4.53 m/Sherry maxP.39 mmHgAV | | meanP.76 mmHgAV Vmax: 2.31 m/Sherry Vmean: 1.60 m/Sherry VTI: 54.59 cmAVA Vmax: | | 1.47 cm2AVA (VTI): 1.35 fh9SLXY Vmax: 0.00 cm2/m2AVAI (VTI): 0.00 cm2/m2LVOT | [...] | m/sMV VTI: 39.44 cmMVA (VTI): 1.87 bv0Yunrvb e': 0.04 m/sSeptal E/e': 30.60 | | Lateral e': 0.04 m/sLateral E/e': 31.32 RAP: 5 mmHgRVSP: 43.29 mmHgTR maxPG: | | 38.29 mmHgTR Vmax: 3.09 m/sSonographer: Authenticated by: [facility] | | Date/Time: 07-03-2017 18:5:35IMPRESSION:1. The [...] | |TAPSE: 2.26 cm | |AR Dec [place]: 2.13 m/s2 | |AR Dec Time: 2121.31 [...] |TR Vmax: 3.09 m/s | | | |Sales Agent Business Services: | |Authenticated by: Roxi Fuentes MD | [...]
--- OUTSIDE RECORDS SUMMARY | ~2017-08-24 | XMS | Clinical Summary ---
Demographics + + + | Address | [address] [facility] [address] | | | [place] [address] | + + + | Home Phone | | + + + | Preferred Language | Unknown | + + + | Marital Status | | + + + | Pentecostalism Affiliation | Unknown | + + + | Race | Unknown | + + + | Ethnic Group | Unknown | + + + Author + + + | Author | [facility] | + + + | Organization | [facility] | + + + | Address | Unknown | + + + | Phone | Unavailable | + + + Support + + +---------+ + | Name | Relationship | Address | Phone | + + +---------+ + | Fransisco Banks | ECON | Unknown | | + + +---------+ + Care Team Providers + +------+ + | Care Supply Coordinator Name | Role | Phone | + [...] artery disease involving coronary bypass graft of [place]ulk[place] | 07/05/2015 | | heart with angina [...] | cooperate with PFT maneuvers. Hx CABG ([facility], [place]): 08/14/2014, | | CABG*1/MVR (SVG to RCA/#31 SJ Epic porcine valve, with Left | | Atrial cryo-MAZE and Atricure clip (40mm).Hx PCI/stent: noHx | | Pacemaker/ICD: 09/29/2014, Medtronic ADDR01, SN: [id number].Last | | Cath, 07/10/2014 ([facility], [place]): left main OK, 20-25% scattered | | LAD, 30-35% scattered LCx, 90% prox-RCA. Moderate-severe MR, | | failed leaflet. LVEF 65%.Last Echo, 09/23/2014 ([facility]): | | bioprosthetic MVR, stable, mean gradient [...] ([facility]), Medtronic | | ADDR01, SN: [id number].Last interrogation, 03/01/2015: battery est | | 12 [...] Procedure | | MD | fibrillation ([facility]); | | | | | | H/O mitral valve | | | | | | replacement | +--------+ + + + + | 06/20/ | Office | | Roxi Fuentes, | Coronary artery | | 2017 | Visit | | MD | disease involving | | | | | | coronary bypass | | | | | | graft of gulkana | | | | | | heart with angina | | | | | | pectoris ([facility]) | | | | | | (Primary Dx); | | | | | | Paroxysmal atrial | | | | | | fibrillation ([facility]); | | | | | | Mixed [...] | | | | | | [place] [address] | | | | | | [phone] | | | | | | | [...] + + + | | [facility] [place] [address] | + + + + + | [...] 4.67 cm TAPSE: 2.26 cm AR Dec [place]: 2.13 m/s2 AR Dec Time: | | [...] | 38.29 mmHg TR Vmax: 3.09 m/s Membership Director: Authenticated by: Gina | | Roxi AMIN Report Date/Time: 07-03-2017 18:5:35 | + + + + | Procedure Note | + + | Jose L Mijares In - 07/03/2017 6:11 PM PDT Patient Name: Shailesh Banks of | | : 1935ccession: [id number] Physician: Roxi Fuentes MD | | INDICATIONS [...] | 4.21 cmLVPWd: 1.18 cmLVOT Area: 3.30 nx0URME Diam: 2.05 cm%FS: 27.54 %EF(Teich): | | [...] (A-L): 76.74 ml/m2LAAs | | A2C: 26.51 [id number] A-L A2C: 107.42 mlLALs A2C: 5.55 cmLAAs A4C: 28.86 kn3GGCMI | | A-L A4C: 127.84 mlLALs A4C: 5.53 cmRAAs: 14.85 lx8SCFSO A-L: 40.08 mlRAESV MOD: | | 36.09 mlRALs: 4.67 cmTAPSE: 2.26 cmAR Dec [place]: 2.13 m/s2AR Dec Time: 2120. | | msAR maxP.28 mmHgAR PHT: 615.18 msAR Vmax: 4.53 m/Sherry maxP.39 mmHgAV | | meanP.76 mmHgAV Vmax: 2.31 m/Sherry Vmean: 1.60 m/Sherry VTI: 54.59 cmAVA Vmax: | | 1.47 cm2AVA (VTI): 1.35 ni1HSNQ Vmax: 0.00 cm2/m2AVAI (VTI): 0.00 cm2/m2LVOT | [...] | m/sMV VTI: 39.44 cmMVA (VTI): 1.87 na6Drtrbb e': 0.04 m/sSeptal E/e': 30.60 | | [...] | |TAPSE: 2.26 cm | |AR Dec [place]: 2.13 m/s2 | |AR Dec Time: 2121.31 [...] |TR Vmax: 3.09 m/s | | | |Membership Director: | |Authenticated by: Roxi Fuentes MD | [...] | xxxxxxxxxx | | | [address] | | | RE | | | | [place] [address] | | | IP-OP | | | [...] Self | [birth year] | Home: | [address] | | | al/Fam | | 1936 | [phone] [place] | | | [place] | | | [phone] | [phone] | + +--------+ +--------+ + +
--- OUTSIDE RECORDS SUMMARY | ~2017-08-24 | XMS | Encounter Summary ---
Demographics + + + | Address | [address] | | | [place] [address] | + + + | Home Phone | | + + + | Preferred Language | Unknown | + + + | Marital Status | | + + + | Orthodoxy Affiliation | Unknown | + + + | Race | Unknown | + + + | Ethnic Group | Unknown | + + + Author + + + | Author | [facility] | + + + | Organization | [facility] | + + + | Address | Unknown | + + + | Phone | Unavailable | + + + Support + + +---------+ + | Name | Relationship | Address | Phone | + + +---------+ + | Fransisco Banks | ECON | Unknown | | + + +---------+ + Care Team Providers + +------+ + | Care Skin Care Instructor Name | Role | Phone | + +------+ + | Nicolas Cline MD | PCP | | + +------+ + Reason for Visit + + + | Reason | Comments | + + + | Atrial Fibrillation | | + + + Encounter Details +--------+---------+ + + + | Date | Type | Department | Care Team | Description | +--------+---------+ + + + | 06/20/ | Office | [facility] | Roxi Fuentes, | Coronary artery | | 2018 | Visit | [facility] | [address] | disease involving | | | | [address] | [address] [place], | coronary bypass | | | | [facility] [address] | [place] [address] | graft of saxman | | | | [place] [address] | [phone] | heart with angina | | | | [phone] | | pectoris (HCC) | | | | | | (Primary Dx); | | | | | | Paroxysmal atrial | | | | | | fibrillation (HCC); | | | | | | Mixed | | | | | | hyperlipidemia; H/O | | | | | | mitral valve | | | | | | replacement | +--------+---------+ + + + Social History + + [...] + + + as of this encounter Last Filed Vital Signs + + + [...] + + + | Respiratory Rate | - | - | + + + + | Oxygen [...] AM PST | + + + + in this encounter Progress Notes Roxi Fuentes MD - 06/20/2017 10:45 AM PSTFormatting of this note may be different fro m the original. Date of visit: 06/20/2017 Primary Care Physician: NICOLAS CLINE CHIEF COMPLAINT: Chief Complaint Patient presents with Atrial Fibrillation HISTORY OF PRESENT ILLNESS: Gladys is 81 y.o. here for with complex past medical history. Since prior evaluation no recent hospitalization. She was started on Aricept for memory imp airment. Patient has history of paroxysmal atrial fibrillation. History of bioprosthetic mitral valv e, post pacemaker implantation. Continues to do her daily walks at home without any cardiac limitations. Has been complaint with her medication. No recent hospitalization. Continues to be on amiodarone and anticoagulation and tolerating that well. Past medical history, SH, FH, and medications were reviewed in the chart. Medications: Outpatient Encounter Prescriptions as of 06/20/2017 Medication Sig Dispense Refill amiodarone (PACERONE) 200 MG tablet Take 200 mg by mouth daily. Sunday thru Sunday only apixaban (ELIQUIS) 2.5 MG tablet Take 1 tablet by mouth 2 (two) times daily. 180 tablet 1 ascorbic acid (VITAMIN C) 500 MG tablet Take 500 mg by mouth daily. aspirin 81 MG EC tablet Take 1 tablet by mouth daily with breakfast. atorvastatin (LIPITOR) 40 MG tablet Take 40 mg by mouth nightly. cetirizine (ZYRTEC) 10 MG tablet Take 10 mg by mouth daily. Cholecalciferol 2000 UNITS CAPS Take 2,000 Units by mouth daily. cyanocobalamin (VITAMIN B-12) 1000 MCG tablet Take 1,000 mcg by mouth daily. donepezil (ARICEPT) 5 MG tablet Take 5 mg by mouth daily. fenofibrate (TRIGLIDE) 160 MG tablet Take 160 mg by mouth daily. ferrous gluconate (FERGON) 240 (27 FE) MG tablet Take 325 mg by mouth daily. glucosamine-chondroitin 500-400 MG CAPS Take 1 capsule by mouth daily. W/ Vitamin D metoprolol (TOPROL-XL) 25 MG 24 hr tablet Take 25 mg by mouth 2 (two) times daily. [DISCONTINUED] donepezil (ARICEPT) 10 MG tablet Take 5 mg by mouth daily. No facility-administered encounter medications on file as of 06/20/2017. Allergies Allergies Allergen Reactions Ezetimibe Hives and Rash Simvastatin Other (See Comments) Muscular aches and pains REVIEW OF SYSTEMS: Constitutional: negative for fatigue. No fever, chills, and rigors. No report of weight ch diana. HEENT: Negative for nosebleeds, ear discharge, nasal congestion or soar throat. Eyes: Right eye vision impairment. Respiratory: Negative for cough, sputum production, hemoptysis, wheezing. Cardiovascular: Negative for orthopnea. No chest pain or tightness. No LE edema. Gastrointestinal: Negative for nausea, vomiting, diarrhea, abdominal pain and blood in stoo l. Genitourinary: Negative for dysuria or hematuria. Musculoskeletal: General arthritic pain. Bilateral hip replacements. Skin: Negative for rash. Neurological: memory impairment. Hematological: No significant bruising. Psychiatric/Behavioral: No depression or anxiety. PHYSICAL EXAM Vital Signs: BP 112/64 (BP Location: Left upper arm, Patient Position: Sitting) | Pulse 66 | Ht 1.6 m (5' 3") | Wt 54.8 kg (120 lb 14.4 oz) | SpO2 95% | BMI 21.42 kg/m GENERAL APPEARANCE: Alert, oriented, cooperative, no distress, appears stated age. HEENT: Extraocular movements were intact. No jaundice. Pupiles round and reactive. NECK: No JVD, lymphadenopathy. Carotid upstrokes normal. No carotid bruit heard. CARDIAC: Regular rhythm and rate. There is normal S1 and S2. Systolic murmur in the left sternal border. CHEST: Normal bilateral symmetrical chest excursion.ackles or wheezing. No evidence of dull ness. ABDOMEN: Soft.No tenderness or guarding. No palpable organs. Active bowel sounds. EXTREMITIES: No lower extremities edema, cyanosis or clubbing. NEURO: Alert and oriented times three with no focal deficit. Cranial nerves are grossly no rmal. SKIN: Warm and dry. No rash. Psych: Normal affect and mood. DATA 12/09/2015 TSH 0.9, Total Chol 259, Tri 100, LDL 172, HDL 67. ALT 21, AST 14. Alk Phos 44. Na 139, K 4 .4, CL 102, Co2 24, Cr 1.0, BUN 24. WBC 5.8, Hg 13.6, Plt 216. 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 Hx Pacemaker/ICD: 09/29/2014, Medtronic ADDR01, SN: [id number]. Last interrogation, 02/06/2017 Battery Longevity/Status: 10.5 yrs 2.79V. p: 99.3%. RVp:<0.1% Last Cath, 07/10/2014 ([facility]): Left main OK, 20-25% scattered LAD, 30-35% scattered LCx, 90% prox-RCA. Moderate-severe M R, failed leaflet. LVEF 65%. Last Echo, 09/23/2014 ([facility]): Bioprosthetic MVR, stable, mean gradient 2mmHg, trace MR, Aortic valve sclerotic, 2m/sec, m ild AI, trace TR, moderate PI, mild LVH, LVEF 64%, severe LAE, mild RHEA. ECG, 12/13/2016: Ordered and reviewed by myself A-paced, intrinsic QRS PRWP ASSESSMENT: Patient is a 51-year-old female with the following medical problems. 1. Paroxysmal atrial fibrillation. CHADSVASc score of 4. On rhythm control strategy. On ant icoagulation tolerating that well. 2. History of sick sinus syndrome status post dual chamber pacemaker. Normal function at pr esent interrogation. 3. Hypertension blood pressure is controlled. 4. Dyslipidemia on statin. 5. History of mitral valve replacement with bioprosthetic valve secondary to severe mitral regurgitation, more pronounced murmur on exam today. 6. Recent memory impairment patient follows up in neurology. Plan: Patient has more pronounced systolic murmur by exam today. 1. Continue with anticoagulation. Discussed with the patient monitoring any bleeding signs. 2. Continue with amiodarone. 3. Continue statin therapy. 4. Continue with metoprolol for blood pressure control. 5. Follow-up in 6 months or earlier if needed. Patient will call with any changes. *This report has been prepared using a voice recognition system. The report was reviewed fo r accuracy, however, sound-alike word errors, addition and/or deletions may occur. If there is any question about this report please contact me. Roxi Fuentes MD, MPHin this encounter Plan of Treatment +--------+ + [...] | | | | | | [place] [address] | | | | | | [phone] | | | | | | | | +--------+ + + + + | 02/19/ | Documentati | Cardiology | | | | 2017 | on Only | | | | +--------+ + + + + | 05/28/ | Documentati | Cardiology | | | | 2018 | on Only | | | | +--------+ + + + + as of this encounter Results ECHO outside interpretation standard (06/26/2017 12:29 PM) + + + | Specimen | Performing Laboratory | + + + | | [address] [address] | + + + + + | [...] 4.67 cm TAPSE: 2.26 cm AR Dec [place]: 2.13 m/s2 AR Dec Time: | | [...] | 38.29 mmHg TR Vmax: 3.09 m/s Enrollment Manager: Authenticated by: Gina | | Roxi AMIN Report Date/Time: 07-03-2017 18:5:35 | + + + + | Procedure Note | + + | Jose L Mijares Results In - 07/03/2017 6:11 PM PDT Patient Name: Shailesh Banks of | | : 1935ccession: [id number] Physician: Roxi Fuentes MD | | INDICATIONS [...] | 4.21 cmLVPWd: 1.18 cmLVOT Area: 3.30 [id number] Diam: 2.05 cm%FS: 27.54 %EF(Teich): | | [...] (A-L): 76.74 ml/m2LAAs | | A2C: 26.51 [id number] A-L A2C: 107.42 mlLALs A2C: 5.55 cmLAAs A4C: 28.86 [id number] | | A-L A4C: 127.84 mlLALs A4C: 5.53 cmRAAs: 14.85 [id number] A-L: 40.08 mlRAESV MOD: | | 36.09 mlRALs: 4.67 cmTAPSE: 2.26 cmAR Dec [place]: 2.13 m/s2AR Dec Time: 2120. | | msAR maxP.28 mmHgAR PHT: 615.18 msAR Vmax: 4.53 m/Sherry maxP.39 mmHgAV | | meanP.76 mmHgAV Vmax: 2.31 m/Sherry Vmean: 1.60 m/Sherry VTI: 54.59 cmAVA Vmax: | | 1.47 cm2AVA (VTI): 1.35 [id number] Vmax: 0.00 cm2/m2AVAI (VTI): 0.00 cm2/m2LVOT | [...] | m/sMV VTI: 39.44 cmMVA (VTI): 1.87 [id number] e': 0.04 m/sSeptal E/e': 30.60 | | Lateral e': 0.04 m/sLateral E/e': 31.32 RAP: 5 mmHgRVSP: 43.29 mmHgTR maxPG: | | 38.29 mmHgTR Vmax: 3.09 m/sSonographer: Authenticated by: Roxi Fuentes [facility] | | Date/Time: 07-03-2017 18:5:35IMPRESSION:1. 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
--- OUTSIDE RECORDS SUMMARY | ~2017-08-24 | XMS | Clinical Summary ---
Demographics + + + | Address | [address] | | | [place] [address] | + + + | Home Phone | | + + + | Preferred Language | Unknown | + + + | Marital Status | | + + + | Restorationist Affiliation | [id number] | + + + | Race | Unknown | + + + | Ethnic Group | Unknown | + + + Author + + + | Author | [facility] | | | and [place] | + + + | Organization | [facility] | | | and [place] | [...] [place], [place] | | | | | [address] | | + + + + + | Fermin Banks | ECON | [address] | | | | | [place] | | | | | [address] | | + + + + + | Faheem Banks | ECON | [address] | | | | | [place] [address] | | + + + + + Care Team Providers + +------+ + | Care Director Property Name | Role | Phone | + [...] | | 10/08/ | [id number] | | [id number]: Qty: 1 on | | Heart | [...] | MODA | [phone] | Indemn | [phone] [address] [address] | | | HEALTH | | ity | [phone] | [place] [address] | | | MDCR | | | [...] Self | [birth year] | Home: | [address] | | | al/Fam | | 1936 | [phone] [place] [address] | | | adilson | | | [phone] | | + +--------+ +--------+ + +
--- OUTSIDE RECORDS SUMMARY | ~2017-08-24 | XMS | Encounter Summary ---
Demographics + + + | Address | [address] | | | [place] [address] | + + + | Home Phone | | + + + | Preferred Language | Unknown | + + + | Marital Status | | + + + | Sabianist Affiliation | Unknown | + + + | Race | Unknown | + + + | Ethnic Group | Unknown | + + + Author + + + | Author | [facility] | + + + | Organization | [facility] | + + + | Address | Unknown | + + + | Phone | Unavailable | + + + Support + + +---------+ + | Name | Relationship | Address | Phone | + + +---------+ + | Fransisco Banks | ECON | Unknown | | + + +---------+ + Care Team Providers + +------+ + | Care Brick Or Block Maker Name | Role | Phone | + [...] | coronary bypass | | | | [facility] [address] | [place] [address] | graft of rosebud | | | | [place] [address] | [phone] | heart with angina | | | | [phone] | | pectoris (HCC) | | | [...] 5.8, Hg 13.6, Plt 216. Hx CABG ([facility]): 08/14/2014, CABG*1/MVR (SVG to RCA/#31 SJ Epic porcine valve, with Left Atrial cryo-MAZE and Atricure c lip (40mm). Hx Pacemaker/ICD: 09/29/2014, Medtronic ADDR01, SN: [id number]. Last interrogation, 02/06/2017 Battery Longevity/Status: 10.5 yrs 2.79V. p: 99.3%. RVp:<0.1% Last Cath, 07/10/2014 ([facility]): Left main OK, 20-25% scattered LAD, 30-35% scattered LCx, 90% prox-RCA. Moderate-severe M R, failed leaflet. LVEF 65%. Last Echo, 09/23/2014 ([facility]): Bioprosthetic MVR, stable, mean gradient 2mmHg, trace [...] | | | | | | [place] [address] | | | | | | [phone] | | | | | | | [...] Laboratory | + + + | | [address] [address] | + + + + + | [...] 4.67 cm TAPSE: 2.26 cm AR Dec [place]: 2.13 m/s2 AR Dec Time: | | [...] | 38.29 mmHg TR Vmax: 3.09 m/s Hr Generalist: Authenticated by: Gina | | Roxi AMIN Report Date/Time: 07-03-2017 18:5:35 | + + + + | Procedure Note | + + | Jose L Mijares Results In - 07/03/2017 6:11 PM PDT Patient Name: Shailesh Banks of | | : 1935ccession: [id number] Physician: Roxi Fuentes MD | | INDICATIONS [...] | 4.21 cmLVPWd: 1.18 cmLVOT Area: 3.30 [id number] Diam: 2.05 cm%FS: 27.54 %EF(Teich): | | [...] (A-L): 76.74 ml/m2LAAs | | A2C: 26.51 [id number] A-L A2C: 107.42 mlLALs A2C: 5.55 cmLAAs A4C: 28.86 kr4XNUSD | | A-L A4C: 127.84 mlLALs A4C: 5.53 cmRAAs: 14.85 [id number] A-L: 40.08 mlRAESV MOD: | | 36.09 mlRALs: 4.67 cmTAPSE: 2.26 cmAR Dec [place]: 2.13 m/s2AR Dec Time: 2120. | | msAR maxP.28 mmHgAR PHT: 615.18 msAR Vmax: 4.53 m/Sherry maxP.39 mmHgAV | | meanP.76 mmHgAV Vmax: 2.31 m/Sherry Vmean: 1.60 m/Sherry VTI: 54.59 cmAVA Vmax: | | 1.47 cm2AVA (VTI): 1.35 [id number] Vmax: 0.00 cm2/m2AVAI (VTI): 0.00 cm2/m2LVOT | [...] | m/sMV VTI: 39.44 cmMVA (VTI): 1.87 df3Ukmrza e': 0.04 m/sSeptal E/e': 30.60 | | Lateral e': 0.04 m/sLateral E/e': 31.32 RAP: 5 mmHgRVSP: 43.29 mmHgTR maxPG: | | 38.29 mmHgTR Vmax: 3.09 m/sSonographer: Authenticated by: Roxi Fuentes [facility] | | Date/Time: 07-03-2017 18:5:35IMPRESSION:1. The left [...] | |TAPSE: 2.26 cm | |AR Dec [place]: 2.13 m/s2 | |AR Dec Time: 2121.31 [...] |TR Vmax: 3.09 m/s | | | |Hr Generalist: | |Authenticated by: Roxi Fuentes MD | [...] artery disease involving coronary bypass graft of rosebud heart with angina | | pectoris ([facility]) - Primary | + + | Paroxysmal atrial fibrillation ([facility]) | + + | Atrial fibrillation | + + | Mixed hyperlipidemia | + + | H/O mitral valve replacement | + + | Heart valve replaced by other means | + +
[~2017-08-24 05:00] MED LIST: AMIODARONE HCL200 MG PO; AMLODIPINE BESYL5 MG PO; ASPIRIN EC325 MG PO; ASPIRIN EC81 MG PO; CETIRIZINE HCL10 MG PO; ELIQUIS2.5 MG PO; FENOFIBRATE160 MG PO; GLUCOSAMINE &1 EAC1 PO; GLUCOSAMINE CH1 EAC1 PO; GLUCOTEN CAPLE1 EACH PO; IRON18 MG PO; LISINOPRIL20 MG PO; LORATADINE10 MG PO; METOPROLOL SUCC25 MG PO; MIRALAX17 GM PO; NORCO 7.5-3251 EACH PO; OXYCODONE HCL5 MG PO; PIROXICAM20 MG PO; POTASSIUM CHLO10 ME2 PO; TYLENOL325 MG PO; VITAMIN C500 M1 PO; VITAMIN D31000 UNIT PO; VITAMIN D32000 UNIT PO; WARFARIN SODIUM2 MG PO; XARELTO10 MG PO; ZYRTEC10 M3 PO
--- NOTE | 2017-08-24 19:26 | EKG ---
[facility] [address] [place] [address] Signed Atrial-paced rhythm Incomplete right bundle branch block Abnormal ECG No previous ECGs available Confirmed by DANIA MCCLELLAN MD ([id number]) on 08/24/2017 7:26:13 PM Electronically Signed By: DANIA MCCLELLAN MD 08/24/17 1926 PATIENT NAME: HARDIK STONE Electrocardiogram DATE OF : 35 PHYSICIAN: DANIA MCCLELLAN MD REPORT #: [id number] REPORT IS CONFIDENTIAL AND NOT TO BE RELEASED WITHOUT AUTHORIZATION
== END 2017-08-24 06:48 | disposition home or self-care (01) ==
LOC: ED 05:00
DX: R61 Generalized hyperhidrosis (principal); I10 Essential (primary) hypertension; I48.91 Unspecified atrial fibrillation; Z88.8 Allergy status to other drugs, medicaments and biological substances; Z79.899 Other long term (current) drug therapy; Z79.01 Long term (current) use of anticoagulants
CPT/HCPCS: 71046; 80053; 81001; 84484; 85025; 93005; 93010; 99284